=== PATIENT | female | born 1965 | race Caucasian/White ===

== ENCOUNTER 2020-03-29 12:59 | Outpatient (CLI) | payer BC ==
--- NOTE | 2020-03-29 15:05 | CT ---
CT lumbar spine without contrast: HISTORY: Lumbar radiculopathy. Patient states low back pain for years. COMPARISON: MRI lumbar spine obtained from [facility] on 06/14/2018 FINDINGS: Right kidney is atrophic. Postcholecystectomy changes are seen. Vascular calcifications are seen in t he abdominal aorta and involving the iliac arteries. Vertebral body heights are within normal limits. T12-L1: Mild disc osteophyte complex is present without significant central canal or neural foraminal narrowing. L1-2: Mild disc osteophyte complex. Central spinal canal and neural foramina are patent. L2-3: No significant central canal or neural foraminal narrowing is seen. L3-4: Bilateral pars defects are seen at L3 with grade 1 anterolisthesis of L3 on L4 measuring 7 mm. Severe endplate degenerative changes are also present at this level with severe loss of intervertebral disc height. This finding was noted on the prior MRI exam. Disc osteophyte complex and facet hypertrophic changes are present. Findings result in mild central canal narrowing and severe bilateral neural foraminal narrowing. L4-5: Disc osteophyte complex and facet hypertrophic changes result in mild central canal narrowing w ith moderate to severe right and moderate left-sided neural foraminal narrowing. L5-S1: Mild disc osteophyte complex is present. There is mild encroachment on the traversing bilatera l S1 nerve roots as the nerve roots exit the thecal sac. Neural foramina are patent. IMPRESSION: Degenerative changes lower lumbar spine which were also seen on prior MRI exam. Severe bilateral neur al foraminal narrowing is present at the L3-4 level related to disc osteophyte complex and spondylolisthesis. There is also moderate to severe right and moderate left-sided neural foraminal na rrowing at the L4-5 level.
--- NOTE | 2020-03-29 15:05 | RAD ---
LUMBAR SPINE: 03/29/20 Total of four views. Lateral views were obtained in neutral, flexion and extension. HISTORY: Low back pain with radiculopathy. FINDINGS: Grade I anterolisthesis with loss of disc space and degenerative disc and end plate changes seen at t he L3-4 level. The vertebral body height is normally maintained. Alignment is otherwise preserved. Degenerative oste ophytes are prominent at L3-4. IMPRESSION: Anterolisthesis with degenerative disc and vertebral body changes at L3-4 as described. Evidence of p osterior spondylolysis. POS: AGW
--- NOTE | 2020-03-29 16:46 | MRI ---
MRI lumbar spine noncontrast HISTORY: Low back pain with radiculopathy. COMPARISON: 06/14/2018. FINDINGS: Images including the retroperitoneum show atrophy of the right kidney similar to the prior exam. The conus medullaris has normal appearance. Vertebral body heights are maintained. There is desiccati on of all of the intervertebral discs. T12-L1: Mild disc space narrowing. Osteophytosis. Central canal and neural foramina are patent. L1-2, L2-3: Desiccation of the discs. Mild osteophytosis. Central canal and neural foramina are paten t. L3-4: Complete loss of disc space height discogenic endplate changes within the bone marrow. There is 1.0 cm spondylolisthesis unchanged from the prior study. Posterior osteophytosis and ligamentous thickening have progressed slightly, now with moderate to severe stenosis of the central canal. Far b ilateral disc bulge. Degenerative changes. Severe stenosis of each neural foramen. L4-5: Mild disc bulge. Circumferential degenerative changes. Mild stenosis of the central canal. Mode rate bilateral foraminal stenoses, right greater than left. L5-S1: Mild osteophytosis. Central canal and neural foramina are patent. IMPRESSION : Degenerative changes have progressed slightly since the 2018 study. Spondylolisthesis an d severe bilateral foraminal stenoses at the L3-4 level. Clinical correlation regarding each L3 dermatome is required.
--- NOTE | 2020-03-29 16:49 | MRI ---
MRI Cervical spine without contrast: HISTORY: Neck pain and left arm tingling for 3 weeks after raking yard. COMPARISON: None FINDINGS: The craniocervical junction is unremarkable. No significant cord signal abnormality. Paravertebral soft tissues have a normal appearance and normal signal intensity. C1-2:No significant stenosis. C2-3: There is no disc bulge or disc herniation. The central spinal canal and neural foramina are pat ent. C3-4: Mild broad-based disc osteophyte complex narrows the ventral subarachnoid space with encroachme nt on the anterior aspect of the spinal cord. Facet degenerative changes are present. Neural foramina are patent. C4-5: Loss of intervertebral disc height. Broad-based disc osteophyte complex is present with uncinat e process hypertrophy seen on the right. Mild narrowing of the central spinal canal is present and there is slight flattening the anterior aspect of the spinal cord. Moderate right and moderate to sev ere left-sided neural foraminal narrowing are present. C5-6: Loss of intervertebral disc height. Broad-based disc osteophyte complex is present. Uncinate pr ocess hypertrophy is present greater on the right. Mild generalized narrowing of the central spinal canal is present with moderate right and severe left-sided neural foraminal narrowing. C6-7: There is a large left paracentral disc protrusion/extrusion which measures 7 mm AP x9 mm transv erse. This does result in mass effect on the left anterolateral aspect of the spinal cord. There is the appearance of expansion of the spinal cord at this level, but this is likely attributable to rota tion of the spinal cord due to the prominent disc protrusion/extrusion. No signal abnormality is present in the spinal cord. Right neural foramen is patent. The large disc protrusion/extrusion likel y affects the exiting nerve root at this level, and results in narrowing of the proximal portion of left neural foramen. C7-T1: There is no disc bulge or disc herniation. The central spinal canal and neural foramina are pa tent. IMPRESSION: Disc degenerative changes in the spine greatest at the C6-7 level with there is a focal left paracent ral disc protrusion/extrusion which results in mass effect on the left anterolateral aspect of the spinal cord as well as narrowing of the central canal at this level. This disc protrusion/extrusion a lso likely affects the exiting nerve root at this level.
== END 2020-03-29 13:00 | disposition home or self-care (01) ==
LOC: SCSCT 12:59
PROVIDERS: ATTEND Surgery
DX: M47.26 Other spondylosis with radiculopathy, lumbar region (principal); M48.061 Spinal stenosis, lumbar region without neurogenic claudication; M25.78 Osteophyte, vertebrae; M43.16 Spondylolisthesis, lumbar region; M51.16 Intervertebral disc disorders with radiculopathy, lumbar region; M47.22 Other spondylosis with radiculopathy, cervical region; M50.123 Cervical disc disorder at C6-C7 level with radiculopathy; M48.02 Spinal stenosis, cervical region
CPT/HCPCS: 72120; 72131; 72141; 72148

== ENCOUNTER 2020-04-18 06:50 | Outpatient (CLI) | payer BC, OTHER ==
[2020-04-18 16:36] LABS: Hemoglobin 14.2 g/dL (12.0-16.0); Mean Corpuscular HGB CONC 33.9 g/dL (32.0-36.0); Mean Corpuscular Hemoglobin 29.5 pg (27.0-31.0); Mean Corpuscular Volume 87.1 fL (78.0-98.0); Mean Platelet Volume 9.4 fL (7.4-10.4); Platelet Count 259 thou/uL (130-400); RBC Distribution Width 13.7 % (11.5-14.5); Red Blood Cell (RBC) Count 4.81 mill/uL (4.20-5.40); White Blood Cell (WBC) Count 8.6 thou/uL (4.8-10.8)
[2020-04-18 16:59] LABS: INR-International Normal Ratio 0.9; Prothrombin Time 11.6 sec (12.0-14.7)
[2020-04-18 17:33] LABS: Anion Gap 16 mmol/L (10-20); BUN (Urea Nitrogen) 22 mg/dL (9.8-20.1); Calc. Creatinine Clearance 0 mL/min (70-130); Calcium 9.2 mg/dL (7.8-10.44); Carbon Dioxide 22 mmol/L (22-29); Chloride 104 mmol/L (98-107); Estimated GFR-MDRD 50; Glucose 124 mg/dL (70-105); Potassium 4.4 mmol/L (3.5-5.1); Sodium 138 mmol/L (136-145)
[2020-04-19 12:06] LABS: SARS-CoV-2 MS2 Positive; SARS-CoV-2 N Gene Negative; SARS-CoV-2 S Gene Negative; SARS-CoV-2 orf1ab Negative
== END 2020-04-18 06:51 | disposition home or self-care (01) ==
LOC: LABBT 06:50
PROVIDERS: ATTEND Surgery
DX: Z01.818 Encounter for other preprocedural examination (principal); Z11.59 Encounter for screening for other viral diseases; M48.02 Spinal stenosis, cervical region; M50.00 Cervical disc disorder with myelopathy, unspecified cervical region; M50.10 Cervical disc disorder with radiculopathy, unspecified cervical region
CPT/HCPCS: 80048; 85027; 85610; 85730; 87635; 93005; 93010; U0003

== ENCOUNTER 2020-04-23 07:52 | Day surgery (SDC) | payer BC ==
[2020-04-23] MEDS ORDERED: Thrombin 5000 UNITS/5 ML VIAL ONE (09:22)
[2020-04-23] MEDS ORDERED: Midazolam HCl 2 mg/2 ml Vial ONE (10:14)
[2020-04-23] MEDS ORDERED: Fentanyl 100 MCG/2 ML VIAL ONE ×4 (10:22→14:27)
[2020-04-23] MEDS ORDERED: SUGAMMADEX SODIUM 200 MG/2 ML VIAL ONE (12:38)
[2020-04-23] MEDS ORDERED: PACU-Morphine 4MG/ML VIAL SLOW IVP PRN (13:07)
[2020-04-23] MEDS ORDERED: Promethazine HCl 25 MG/ML VIAL SLOW IVP PRN (13:07)
[2020-04-23] MEDS ORDERED: Ondansetron HCl/PF 4 MG/2 ML Vial IVP PRN (13:07)
[2020-04-23] MEDS ORDERED: Meperidine HCl/PF 25 MG/ML VIAL SLOW IVP PRN (13:07)
[2020-04-23] MEDS ORDERED: Promethazine HCl 25 MG/ML VIAL IM PRN (13:07)
[2020-04-23] MEDS ORDERED: Morphine Sulfate 2 MG/ML SYRINGE SLOW IVP PRN (13:07)
[2020-04-23] MEDS ORDERED: HYDROmorphone 2 MG/ML VIAL SLOW IVP PRN (13:07)
[2020-04-23] MEDS ORDERED: Morphine 2 MG/ML SYRINGE SLOW IVP PRN (13:10)
[2020-04-23] MEDS ORDERED: Milk Of Magnesia 30 ML UDCUP PO PRN (13:10)
[2020-04-23] MEDS ORDERED: Fleet Enema 133 ML BOT PR PRN (13:10)
[2020-04-23] MEDS ORDERED: traMADol HCl 50 MG TAB PO PRN (13:10)
[2020-04-23] MEDS ORDERED: Acetaminophen 325 MG TAB PO PRN (13:10)
[2020-04-23] MEDS ORDERED: diphenhydrAMINE 25 MG CAP PO PRN (13:10)
[2020-04-23] MEDS ORDERED: Mag-Al 1200 mg/1200 mg/30 ML UDCUP PO PRN (13:10)
[2020-04-23] MEDS ORDERED: Bisacodyl 10 MG SUPP PR PRN (13:10)
[2020-04-23] MEDS ORDERED: Acetaminophen/Codeine 30-300mg Tablet PO PRN (13:10)
[2020-04-23] MEDS ORDERED: tiZANidine HCl 4 MG TAB PO PRN (13:10)
[2020-04-23] MEDS ORDERED: Ondansetron PF 4 MG/2 ML Vial IVP PRN (13:10)
[2020-04-23] MEDS ORDERED: Rocuronium Bromide 10 MG/ML (10ML VIAL) ONE (15:01)
[2020-04-23] MEDS ORDERED: PROPOFOL 200 MG/20 ML VIAL ONE (15:01)
[2020-04-23] MEDS ORDERED: EPHEDRINE 25 MG/5 ML SYRINGE ONE (15:01)
[2020-04-23] MEDS ORDERED: Lidocaine 1% PF 5 ML VIAL ONE (15:01)
[2020-04-23] MEDS ORDERED: Dexamethasone 20 MG/5 ML VIAL ONE (15:01)
[2020-04-23] MEDS ORDERED: Ondansetron PF 4 MG/2 ML Vial ONE (15:01)
[2020-04-23] MEDS ORDERED: PHENYLEPHRINE-NS 100 MCG/ML 10 ML SYRINGE ONE (15:01)
[2020-04-23] MEDS ORDERED: CEFAZOLIN 2 GM in Premix Bag 1 BAG IVPB SCH (16:00)
[2020-04-23] MEDS: Sodium Chloride 0.9% 1,000 ML IV SCH (16:31)
[2020-04-23 17:43] VITALS: BMI 28.3
[2020-04-23] MEDS: HYDROcodone/Acetaminophen 7.5/325 mg Tablet PO PRN ×2 (19:33→23:45)
[2020-04-23] MEDS ORDERED: Cepastat Lozenges 1 LOZ PO PRN (21:35)
[2020-04-23] MEDS: Cephalexin 250 MG CAP PO SCH (23:45)
[2020-04-24] MEDS: Sodium Chloride 0.9% 1,000 ML IV SCH (01:56)
[2020-04-24] MEDS: Cephalexin 250 MG CAP PO SCH ×2 (05:24→11:10)
[2020-04-24] MEDS: HYDROcodone/Acetaminophen 7.5/325 mg Tablet PO PRN ×2 (05:24→10:17)
[2020-04-24 07:49] VITALS: TEMP 97.8
--- NOTE | 2020-04-24 09:33 | PRG ---
DATE OF SERVICE: SUBJECTIVE: Ms. Hall is doing well postoperative day 1, C4-C7 ACDF. She has had resolution in her arm pain with some improvement even in her right leg pain, although she has lumbar spondylolisthesis and severe compression of the nerve roots in the lumbar spine as well. She has good strength. Her drain output is minimal, we will remove it. We went over do's and don'ts in the postoperative period. I also informed her of her osteopenia and potential osteoporosis. At, perhaps, some point, she can discuss with Dr. Miguel, her primary care physician initiation of prevention medication. Job ID: [id number]
--- NOTE | 2020-04-24 11:18 | OP ---
DATE OF PROCEDURE: 04/23/2020 LOCATION: OR 11. CARTOGRAPHY/MAPPING TECHNICIAN: Syeda Gallegos PA-C PREPROCEDURE DIAGNOSES: Multilevel cervical stenosis with disk extrusion, neck and left greater than right upper extremity pain with myelopathy. POSTPROCEDURE DIAGNOSES: Multilevel cervical stenosis with disk extrusion, neck and left greater than right upper extremity pain with myelopathy. PROCEDURES PERFORMED: 1. Anterior C4-C5, C5-C6, C6-C7 diskectomies for decompression of spinal cord nerve roots. 2. Placement of interbody spacer C4-C5, C5-C6, C6-C7 packed with graft. 3. Anterior cervical plate and screw fixation, C4, C5, C6, and C7. 4. Use of operating microscope for microdissection. DESCRIPTION OF PROCEDURE: After informed consent was obtained from the patient, the patient was brought to the OR. Proper patient, pause, and identification were carried out. She was placed under excellent general endotracheal anesthesia and positioned supine on the OR table. Right anterior oblique chandni was drawn out to allow for approach at C4 through C7 segments. This region was sterilely cleansed, prepared, and draped. Proper patient, pause, and identification were carried out. The wound was then opened with combination of sharp, monopolar, and blunt dissection, proceeded lateral to the larynx, pharynx, tracheoesophageal bundle medial to the right carotid sheath. We identified the prevertebral layer of deep cervical fascia. Retraction then occurred following exposure from C4 down to C7. Localization film confirmed area of interest. We then performed distraction at C4-C5 and diskectomy at C4-C5 with decompression of spinal cord and C5 nerve roots. Endplates were prepared and interbody spacer packed with graft was placed at C4-C5 for initiation of arthrodesis. I should note her bone was certainly on the softer side given her young age. She is a smoker. We then did the same thing at C5-C6 diskectomy and decompression of spinal cord and C6 nerve roots and C6-C7 diskectomy and decompression of spinal cord and nerve roots, placement of interbody spacers, packed with graft at C5-C6 and C6-C7 respectively, all for arthrodesis initiation. The wound was copiously irrigated. Plate was then positioned and anterior plate and screw fixation were occurred from C4 all the way down to C7 with final tightening. The microscope was used for all of this. The microscope was then removed. Copious irrigation occurred. Hemostasis maximized. The wound was then closed in anatomic layers following the placement of a drain. The patient emerged from anesthesia. Job ID: [id number]
[2020-04-24 11:43] VITALS: BP 125/81
== END 2020-04-24 11:42 | disposition home or self-care (01) ==
LOC: SDC 07:52 → SURG A 15:44 → SDC 04-24 11:42
PROVIDERS: ATTEND Surgery
PROC: 0RG20A0 Fusion of 2 or more Cervical Vertebral Joints with Interbody Fusion Device, Anterior Approach, Anterior Column, Open Approach (ICD-10-PCS; principal; 2020-04-24)
PROC: 0RG2070 Fusion of 2 or more Cervical Vertebral Joints with Autologous Tissue Substitute, Anterior Approach, Anterior Column, Open Approach (ICD-10-PCS; principal; 2020-04-24)
PROC: 0RT30ZZ Resection of Cervical Vertebral Disc, Open Approach (ICD-10-PCS; principal; 2020-04-24)
DX: M48.02 Spinal stenosis, cervical region (principal); M50.021 Cervical disc disorder at C4-C5 level with myelopathy; M50.121 Cervical disc disorder at C4-C5 level with radiculopathy; Z79.899 Other long term (current) drug therapy; Z88.1 Allergy status to other antibiotic agents; Z88.2 Allergy status to sulfonamides; Z88.8 Allergy status to other drugs, medicaments and biological substances
CPT/HCPCS: 76000; C1776; J0690; J1100; J2001; J2250; J2270; J2405; J2704; J3010; J3490

== ENCOUNTER 2020-07-19 11:09 | Emergency (ER) | payer BC ==
--- NOTE | 2020-07-19 12:18 | RAD ---
EXAM: XR Lumbar Spine 2 Or 3 View PROVIDED CLINICAL HISTORY: Back pain COMPARISON: 03/29/2020 FINDINGS: 5 nonrib-bearing lumbar-type vertebral bodies are demonstrated. Anterolisthesis of L3 on L4 is redemo nstrated, similar to prior. Interval placement of bilateral pedicle screws and vertical interconnecting rods spanning L3-4 with intervening intervertebral disc device. No evidence for hardw are loosening or migration. Vertebral body heights appear preserved. Pedicles appear intact. No evidence for fracture. IMPRESSION: Interval postoperative change without evidence for an acute process.
[2020-07-19] MEDS ORDERED: Morphine 2 MG/ML SYRINGE ONE (13:01)
[2020-07-19] MEDS ORDERED: Morphine 4 MG/ML VIAL ONE (13:01)
[2020-07-19] MEDS ORDERED: Dexamethasone 10 MG/ML VIAL ONE (14:17)
== END 2020-07-19 14:43 | disposition home or self-care (01) ==
LOC: ERS 11:09
DX: G89.29 Other chronic pain (principal); M54.5 Low back pain; F17.210 Nicotine dependence, cigarettes, uncomplicated; Z79.899 Other long term (current) drug therapy
CPT/HCPCS: 72100; 96372; J1100; J2270

== ENCOUNTER 2020-08-02 12:27 | Outpatient (CLI) | payer BC ==
--- NOTE | 2020-08-02 12:59 | RAD ---
Exam: 4 views lumbar spine HISTORY: Previous fusion. Lumbar radiculopathy. COMPARISON: 07/19/2020. FINDINGS: Five lumbar type vertebra. Lumbar spine vertebral body height is maintained. No fracture. Redemonstra tion of bilateral transpedicular screws at L3 and L4. No perihardware lucency. L3-L4 disc prosthesis. Spondylolisthesis: L3-L4: 6.6 mm of anterolisthesis in the neutral position; 5.3 mm of anterolisthesis upon flexion; 6.1 mm of anterolisthesis upon extension. IMPRESSION: L3-L4 fusion with essentially stable anterolisthesis in the neutral position versus extension/flexion . Transcribed Date/Time: 08/02/2020 1:05 PM
--- NOTE | 2020-08-02 14:12 | RAD ---
CERVICAL SPINE SERIES 3 VIEWS: HISTORY: Postsurgical evaluation. COMPARISON: 06/03/2020 exam. FINDINGS: The anterior plate and screws are unchanged in appearance as compared to the prior examination. Plat e and screws extend from C4 to C7. Markers of disk implants are unchanged in position. The gap betw een the plate and the anterior margin of the vertebral bodies is stable as compared to the prior exam . IMPRESSION: Stable postop change. POS: [facility]
== END 2020-08-02 12:28 | disposition home or self-care (01) ==
LOC: TBSIIMAG 12:27
PROVIDERS: ATTEND Physician Assistant
DX: M54.12 Radiculopathy, cervical region (principal); M54.16 Radiculopathy, lumbar region; M48.062 Spinal stenosis, lumbar region with neurogenic claudication; M43.16 Spondylolisthesis, lumbar region; M48.02 Spinal stenosis, cervical region; Z98.890 Other specified postprocedural states
CPT/HCPCS: 72040; 72110

== ENCOUNTER 2023-08-12 11:45 | Emergency (ER) | payer BC ==
[2023-08-12] MEDS ORDERED: Acetaminophen 500 MG TAB ONE (12:48)
== END 2023-08-12 14:05 | disposition home or self-care (01) ==
LOC: ERS 11:45
DX: M54.2 Cervicalgia (principal); M54.50 Low back pain, unspecified; F17.210 Nicotine dependence, cigarettes, uncomplicated
CPT/HCPCS: 72040; 72100